=== PATIENT | male | born 1985 | race African-American/Black ===

== ENCOUNTER 2017-08-21 18:25 | Emergency (ER) | payer OTHER ==
[~2017-08-21] VITALS: Ht 180.3 cm; Wt 108.8 kg
[~2017-08-21 18:25] MED LIST: AMOXICILLIN500 MG OR; COMBIVIR 1501 COMBO PO; CRIXIVAN400 MG PO; DARVOCET-N 100100 MG OR; ERYTHROMYCI3 OP; FLEXERIL OR; ROBITUSSIN AC10 ML OR; ROBITUSSIN AC10 ML PO; TORADOL OR; ULTRAM50 M1 PO
[2017-08-21] MEDS ORDERED: BENADRYL 50MG C50 MG PO (20:18)
[2017-08-21 20:30] VITALS: BP 165/105
== END 2017-08-21 20:30 | disposition home or self-care (01) | DRG 159 ==
LOC: ED 18:25
DX: K12.2 Cellulitis and abscess of mouth (principal)

== ENCOUNTER 2017-08-24 09:41 | Emergency (ER) | payer OTHER ==
[~2017-08-24] VITALS: Ht 180.3 cm; Wt 108.8 kg
[~2017-08-24 09:41] MED LIST changes: +BENADRYL 50MG C50 MG PO
[2017-08-24] MEDS ORDERED: HYZAAR1 TA1 PO (09:59)
[2017-08-24 10:40] LABS: HEMATOCRIT 44.4 % (39.0-50.0); HEMOGLOBIN 14.9 g/dl (14.0-18.0); IMMATURE GRANULOCYTES 0.4 % (0.0-1.0); MEAN CELL VOLUME 85.4 fL CALC (80.0-100.0); MEAN CORPUSCULAR HGB 28.7 pG CALC (26.0-32.0); MEAN CORPUSCULAR HGB CONC 33.6 g/L CALC (32.0-36.0); NEUT# 2.98 thou/uL (1.82-7.42); RED BLOOD COUNT 5.2 mill/uL (4.70-6.10); RED CELL DISTRI WIDTH 12.4 % (11.5-15.5)
[2017-08-24 11:04] LABS: URINE BILIRUBIN - DIPSTICK NEGATIVE (NEGATIVE); URINE BLOOD DIPSTICK NEGATIVE (NEGATIVE); URINE COLOR YELLOW; URINE GLUCOSE - DIPSTICK NEGATIVE (NEGATIVE); URINE KETONE NEGATIVE (NEGATIVE); URINE LEUK ESTERASE NEGATIVE (NEGATIVE); URINE NITRITE - DIPSTICK NEGATIVE (Negative); URINE PROTEIN - DIPSTICK NEGATIVE (NEG-TRACE); URINE UROBILINOGEN - DIPSTICK 0.2 E.U./dL (0.2)
[2017-08-24 11:06] LABS: URINE CLARITY CLEAR
[2017-08-24 11:09] LABS: BARBITURATES NEGATIVE (NEGATIVE); COCAINE NEGATIVE (NEGATIVE); METHADONE NEGATIVE (NEGATIVE); OXCYCODONE NEGATIVE (NEGATIVE); TETRAHYDROCANNABIONOL NEGATIVE (NEGATIVE); TRICYLIC ANTIDEPRESSANTS NEGATIVE (NEGATIVE)
[2017-08-24 11:37] LABS: ALBUMIN 4.6 g/dL (3.2-5.0); ALKALINE PHOSPHATASE 64 u/l (38-126); ANION GAP 15 (6-22 (CALC)); BILIRUBIN, TOTAL 0.7 mg/dL (0.0-1.4); BUN 18 mg/dL (9-20); BUN/CREATININE RATIO 18 (12-20 (CALC)); CALCIUM 9.6 mg/dL (8.4-10.2); CARBON DIOXIDE 29 mmol/l (22-30); CHLORIDE 100 mmol/l (95-108); GFR > 60 ML/MIN (>=60 (CALC)); GFR FOR AFR.AMER. > 60 ML/MIN (>=60 (CALC)); GLUCOSE 97 mg/dL (75-110); POTASSIUM 4.3 mmol/l (3.5-5.1); SGOT/AST 27 u/l (17-59); SGPT/ALT 40 u/l (21-72); SODIUM 140 mmol/l (137-146); TOTAL PROTEIN 7.7 g/dL (6.3-8.2)
[2017-08-24 12:30] VITALS: BP 139/82
== END 2017-08-24 12:35 | disposition home or self-care (01) | DRG 93 ==
LOC: ED 09:41
PROVIDERS: Emergency Medicine
DX: R20.2 Paresthesia of skin (principal); R11.10 Vomiting, unspecified; R53.1 Weakness; R94.31 Abnormal electrocardiogram [ECG] [EKG]

== ENCOUNTER 2020-01-19 02:59 | Observation (INO) | payer OTHER ==
[~2020-01-19] VITALS: Ht 180.3 cm; Wt 107.5 kg
[~2020-01-19 02:59] MED LIST changes: +HYZAAR1 TA1 PO
--- NOTE | 2020-01-19 03:37 | NUR ---
AMBULATED TO ROOM
--- NOTE | 2020-01-19 04:00 | NUR ---
SWABS FOR FLU/STREP/CORVID OBTAINED AND SENT BY [facility] RN. CORVID SENT TO [facility].
[2020-01-19 04:45] LABS: HEMATOCRIT 42.6 % (39.0-50.0); HEMOGLOBIN 14.2 g/dl (14.0-18.0); IMMATURE GRANULOCYTES 0.3 % (0.0-5.0); MEAN CELL VOLUME 84.7 fL CALC (80.0-100.0); MEAN CORPUSCULAR HGB 28.2 pG CALC (26.0-32.0); MEAN CORPUSCULAR HGB CONC 33.3 g/dL CAL (32.0-36.0); NEUT# 4.02 thou/uL (1.82-7.42); RED BLOOD COUNT 5.03 mill/uL (4.70-6.10); RED CELL DISTRI WIDTH 12.2 % (11.5-15.5)
[2020-01-19 05:03] LABS: ALBUMIN 4.7 g/dL (3.2-5.0); ALKALINE PHOSPHATASE 67 u/l (38-126); AMYLASE 78 u/l (30-110); ANION GAP 14 (6-22 (CALC)); BUN 16 mg/dL (9-20); BUN/CREATININE RATIO 14 (12-20 (CALC)); CARBON DIOXIDE 26 mmol/l (22-30); CHLORIDE 102 mmol/l (95-108); CREATININE 1.1 mg/dL (0.7-1.3); GFR > 60 ML/MIN (>=60 (CALC)); GFR FOR AFR.AMER. > 60 ML/MIN (>=60 (CALC)); LIPASE 47 u/l (23-300); POTASSIUM 3.9 mmol/l (3.5-5.1); SODIUM 138 mmol/l (137-146)
[2020-01-19 05:04] LABS: BILIRUBIN, TOTAL 0.4 mg/dL (0.0-1.4); SGOT/AST 50 u/l (17-59)
--- NOTE | 2020-01-19 05:30 | NUR ---
PT VOIDED AND URINE SENT. 500 CC U/O
[2020-01-19 05:43] LABS: URINE BILIRUBIN - DIPSTICK NEGATIVE (NEGATIVE); URINE BLOOD DIPSTICK NEGATIVE (NEGATIVE); URINE COLOR YELLOW; URINE GLUCOSE - DIPSTICK NEGATIVE (NEGATIVE); URINE KETONE NEGATIVE (NEGATIVE); URINE LEUK ESTERASE NEGATIVE (NEGATIVE); URINE NITRITE - DIPSTICK NEGATIVE (Negative); URINE PROTEIN - DIPSTICK NEGATIVE (NEG-TRACE); URINE UROBILINOGEN - DIPSTICK 0.2 E.U./dL (0.2)
[2020-01-19] MEDS ORDERED: NORVASC5 M1 PO (05:47)
[2020-01-19] MEDS ORDERED: LIPITOR10 M1 PO (05:48)
--- NOTE | 2020-01-19 06:40 | NUR ---
PT VOIDED AGAIN...600 CC
--- NOTE | 2020-01-19 06:53 | NUR ---
REPORT TO CAROLINA HERR/MED-S[facility]G
--- NOTE | 2020-01-19 06:55 | NUR ---
REPORT TO MANISH WHO WILL TAKE PT UP.
--- NOTE | 2020-01-19 07:35 | NUR ---
PT ARRIVED TO UNIT VIA WHEELCHAIR WITH ER STAFF; ALERT AND ORIENTED. AMBULATES TO BED INDEPENDENTLY WITH STEADY GAIT. DENIES PAIN. RESPIRATIONS EVEN AND UNLABORED ON ROOM AIR; PT C/O MILD SOB WHEN LAYING FLAT. PT PLACED ON AIRBORNE ISOLATION PRECAUTIONS PENDING COVID TEST RESULTS; PT EDUCATED ON ISOLATION AND NEGATIVE PRESSURE ROOMS. ORIENTED TO ROOM AND CALL LIGHT SYSTEM. PLAN OF CARE DISCUSSED. PT ENCOURAGED TO VERBALIZE CONCERNS. STATES UNDERSTANDING. SAFETY MEASURES IN PLACE. CALL LIGHT WITHIN REACH.
--- NOTE | 2020-01-19 07:37 | NUR ---
PT TAKEN TO FLOOR PER ISOLATION, WITH MASK AND CLEAN SHEET WRAPPED AROUND PT.
[2020-01-19 08:35] VITALS: BP 156/66
--- NOTE | 2020-01-19 09:35 | NUR ---
IV FLUIDS INITIATED; IV SITE APPEARS HEALTHY AND FLUSHES. NO REQUESTS OR CONCERNS. PT INDEPENDENT IN ROOM.
[2020-01-19 11:13] VITALS: BP 143/64
--- NOTE | 2020-01-19 12:31 | NUR ---
BP MEDICATION GIVEN; PT DECLINED [place] POTASSIUM DUE TO SIDE EFFECT OF HEADACHES. PT REPORTS THAT HE FEELS MUCH BETTER. DENIES PAIN AND SOB. LARGE PO INTAKE. CALL LIGHT WITHIN REACH.
--- NOTE | 2020-01-19 14:32 | NUR ---
DR. PINEDA AT BEDSIDE.
[2020-01-19 14:45] VITALS: BP 166/76
--- NOTE | 2020-01-19 17:10 | NUR ---
NO ACUTE CHANGES IN CONDITION; PT USES CALL LIGHT PRN FOR ASSISTANCE. INDEPENDNET. IV SITE APPEARS HEALTHY. SR ON TELE. VOIDING CLEAR YELLOW URINE. CALL LIGHT WITHIN REACH.
--- NOTE | 2020-01-19 19:15 | NUR ---
REPORT FROM NEMESIO FIGUEROA. PT SITTING UP IN BED. ALERT AND ORIENTED. NO APPARENT DISTRESS NOTED. PT DENIES ANY PAIN OR DISCOMFORT. RESPIRATIONS EVEN AND UNLABORED. IV SITE APPEARS HEALTHY WITH IVF INFUSING. BOX LOADER IN PLACE. PT REMAINS ON ISOLATION PRECAUTIONS FOR R/O COVID-19. DISCUSSED POC. PT VERBALIZED UNDERSTANDING. CALL LIGHT WITHIN REACH. WILL CONTINUE TO MONITOR.
[2020-01-19 19:55] VITALS: BP 155/86
--- NOTE | 2020-01-19 20:40 | NUR ---
FRESH ICE WATER AND SNACK PROVIDED. PT DENIES ANY OTHER WANTS OR NEEDS. NO APPARENT DISTRESS NOTED. PT DENIES ANY PAIN OR SOB. CALL LIGHT WITHIN REACH. WILL CONTINUE TO MONITOR.
[2020-01-19 23:54] VITALS: BP 140/70
--- NOTE | 2020-01-20 00:16 | NUR ---
PT RESTING IN BED WITH EYES CLOSED. NO APPARENT DISTRESS NOTED. CALL LIGHT WITHIN REACH. WILL CONTINUE TO MONITOR.
[2020-01-20 04:45] VITALS: BP 152/81
--- NOTE | 2020-01-20 04:46 | NUR ---
PT RESTING IN BED WITH EYES CLOSED. NO APPARENT DISTRESS NOTED. CALL LIGHT WITHIN REACH. WILL CONTINUE TO MONITOR.
[2020-01-20 07:54] VITALS: BP 152/64
--- NOTE | 2020-01-20 09:00 | NUR ---
PT AWAKE, ALERT, AMBULATORY IN ROOM, NO DISTRESS NOTED. PT DENIES CHEST PAIN OR SHORTNESS OF BREATH.
[2020-01-20 11:05] VITALS: BP 139/67
--- NOTE | 2020-01-20 13:24 | NUR ---
PT REMAINS BEFORE, AMBULATORY IN ROOM, NO COMPLAINTS.
[2020-01-20 15:00] VITALS: BP 157/71
[2020-01-20] MEDS ORDERED: ZPAK PO (15:09)
[2020-01-20] MEDS ORDERED: KEFLEX500 MG PO (15:09)
[2020-01-20] MEDS ORDERED: PROAIR HFA IN (15:49)
--- NOTE | 2020-01-20 15:56 | NUR ---
PT HAS BEEN DISCHARGED TO HOME. PT VERBALIZED UNDERSTANDING OF DC INSTRUCTIONS, CHOSE TO AMBULATE WITH NURSE TO LOBBY, LEAVES [facility] IN STABLE CONDITION. PT AWARE OF SELF ISOLATION UNTIL HE LEARNS COVID-19 RESULT.
--- NOTE | 2020-01-20 18:14 | NUR ---
LAB HAS CALLED TO SAY THAT PT'S COVID-19 RESULT WAS NEGATIVE. PT WAS CALLED AT THIS TIME AND IS AWARE THAT HIS RESULT WAS NEGATIVE.
--- NOTE | 2020-01-21 12:59 | NUR ---
Notified patient of Covid results (negative). Advised patient to follow up with PCP and retuen to Ed with urgent issues. Advised patient to continue Covid prevention practices such as hand washing, social distancing and to avoid contact with others. Patient verbalized understanding.
== END 2020-01-20 15:52 | disposition home or self-care (01) | DRG 195 ==
LOC: ED 02:59 → ED-I 05:50 → ED 06:11 → ED-I 06:12 → MS2 06:30
PROVIDERS: ADMIT Internal Medicine; ATTEND Internal Medicine
DX: J18.9 Pneumonia, unspecified organism (principal); I10 Essential (primary) hypertension; E78.5 Hyperlipidemia, unspecified; J45.909 Unspecified asthma, uncomplicated; Z20.828 Contact with and (suspected) exposure to other viral communicable diseases
CPT/HCPCS: G0378